=== PATIENT | male | born 1965 | race Caucasian/White ===

== ENCOUNTER 2018-06-27 06:28 | Outpatient (CLI) | payer BC | END 2018-06-27 06:29 | disposition home or self-care (01) | LOC: CARDIO 06:28 | DX: Z01.810 Encounter for preprocedural cardiovascular examination (principal); E78.00 Pure hypercholesterolemia, unspecified; F32.9 Major depressive disorder, single episode, unspecified; I10 Essential (primary) hypertension; R73.03 Prediabetes ==

== ENCOUNTER 2018-07-04 06:49 | Day surgery (SDC) | payer BC ==
[2018-06-30 07:56] VITALS: BMI 31.6
[2018-07-04] MEDS ORDERED: Lidocaine 2% Inj (20ml) ONE (07:03)
[2018-07-04] MEDS ORDERED: Iohexol 350mgl/ml 50 ML ONE (07:04)
[2018-07-04] MEDS ORDERED: Iohexol 350 MG/100 ML VIAL ONE (07:04)
[2018-07-04 07:21] LABS: BASO # 0.02 K/mm3 (0.0-2.0); BASO % 0.3 % (0.0-3.0); EOS # 0.2 (0.0-0.7); EOS % 2.5 % (1.5-5.0); HEMOGLOBIN 14.5 g/dL (14.0-18.0); LYMPH # 2.2 (1.2-3.4); LYMPH % 33.5 % (22.0-35.0); MEAN CELL VOLUME 91.9 fl (80.0-105.0); MEAN CORPUSCULAR HGB CONC 32.6 g/dl (31.0-37.0); MONO # 0.7 (0.1-0.6); MONO % 10.2 % (1.0-6.0); RBC 4.84 10^6/uL (3.5-6.1); RED CELL DISTRIBUTION WIDTH 13.2 % (11.5-14.5); WHITE BLOOD COUNT 6.5 10^3/uL (4.5-11.0)
[2018-07-04 07:29] LABS: BLOOD UREA NITROGEN 12 mg/dL (7-21); CALCIUM 9.6 mg/dL (8.4-10.5); GFR NON-AFRICAN AMERICAN > 60; HDL CHOLESTEROL 36 mg/dL (29-60)
[2018-07-04 07:34] LABS: INR 1.04; PARTIAL THROMBOPLASTIN TIME 37.1 Seconds (26.9-38.3); PROTHROMBIN TIME 11.8 SECONDS (9.4-12.5)
[2018-07-04 07:40] LABS: LDL CHOLESTEROL 128 mg/dL (0-129)
[2018-07-04 07:42] VITALS: RESP 18; TEMP 98.3
[2018-07-04] MEDS ORDERED: Midazolam 2 MG/2 ML VIAL ONE ×2 (08:16→08:28)
[2018-07-04] MEDS ORDERED: Naloxone 0.4 mg/ml Inj (Adult) ONE (08:45)
[2018-07-04] MEDS ORDERED: Flumazenil 0.1 mg/ml Inj (5ml) IVP ONE (08:46)
[2018-07-04] MEDS ORDERED: Sodium Chloride 0.9% 1,000 ML IV SCH (09:00)
--- NOTE | 2018-07-04 09:38 | CARDCATH ---
PROCEDURE DATE: 07/04/2018 HISTORY The patient is a 53-year-old male who presented with an abnormal stress test during his preop evaluation for noncardiac surgery. The patient suffers from diabetes mellitus and hypertension and complains of intermittent chest discomfort. Because of this, cardiac catheterization was recommended. The right femoral artery was cannulated with a 6-Maltese sheath. There were no complications. I performed moderate sedation which included the presence of an independent trained observer that assisted in monitoring the patient's level of consciousness and physiologic status. After administration of Versed and fentanyl, my intra service time was 15 minutes. Findings on catheterization revealed the left ventricle that contracted normally. Estimated ejection fraction was 60%. Supra-aortic valvular injection revealed trace aortic insufficiency. His coronary anatomy revealed a right dominant circulation. The RCA revealed no critical lesions. The left main artery was unremarkable. The circumflex artery and obtuse marginal branches were free of significant disease. The LAD and diagonal vessels revealed a midportion of the LAD which took a tortuous turn which may represent a partial intramyocardial portion of the mid LAD. At the takeoff of the second diagonal, there was 50% stenoses just at the turn of the LAD into the intramyocardial septum. No other critical lesions were noted. Angio-Seal was used to close the femoral artery site. The patient tolerated the procedure well. In summary, the procedure revealed 50% stenosis at the ostium of a diagonal vessel at the mid LAD which at that portion became an intramyocardial segment. Normal LV function. Trace aortic insufficiency. Given these findings, the patient's treatment should be a cardiac risk reduction program. There are no cardiac contraindications to his planned nasal surgery. Stevenson Arguelles MD
--- NOTE | 2018-07-04 11:05 | CARD ---
APPROVED REPORT Date of service: 07/04/2018 EKG Measurement Heart [id number] <Conclusion> Normal sinus rhythm Nonspecific T wave abnormality Abnormal ECG
[2018-07-04 15:18] VITALS: O2SAT 98
[2018-07-04 16:39] VITALS: BP 120/70; PULSE 78
== END 2018-07-04 16:16 | disposition home or self-care (01) ==
LOC: CATH 06:49
PROVIDERS: ATTEND Internal Medicine Cardiovascular Disease
DX: I25.10 Atherosclerotic heart disease of native coronary artery without angina pectoris (principal); I10 Essential (primary) hypertension; E11.9 Type 2 diabetes mellitus without complications; E66.8 Other obesity; E78.2 Mixed hyperlipidemia; I35.1 Nonrheumatic aortic (valve) insufficiency; R94.39 Abnormal result of other cardiovascular function study; E55.9 Vitamin D deficiency, unspecified; F51.01 Primary insomnia; M10.9 Gout, unspecified; J45.21 Mild intermittent asthma with (acute) exacerbation; R07.89 Other chest pain; M05.879 Other rheumatoid arthritis with rheumatoid factor of unspecified ankle and foot; M19.079 Primary osteoarthritis, unspecified ankle and foot; M54.5 Low back pain; K21.9 Gastro-esophageal reflux disease without esophagitis; D51.3 Other dietary vitamin B12 deficiency anemia; H11.89 Other specified disorders of conjunctiva; M62.838 Other muscle spasm; Z68.31 Body mass index [BMI] 31.0-31.9, adult
CPT/HCPCS: 36415; 80048; 80061; 85025; 85610; 85730; 86850; 86900; 93005; 93458; 99152; C1760; C1769; C2629; J1644; J2250; J2310; J3010; J7030; Q9967